=== PATIENT | female | born 1975 | race Two or more races ===

== ENCOUNTER → 2016-08-31 | Outpatient (CLI) | payer OTHER ==
--- NOTE | 2016-08-31 17:51 | US ---
Left Breast Ultrasound August 31, 2016 Indication: Pain upper-outer left breast. Technique: The upper-outer left breast was scanned with a high-resolution linear transducer by the jayden potts and . Correlation made with mammograms and targeted physical exam. Findings: Sonography reveals normal dense bands of fibroglandular tissue throughout the upper-outer l eft breast. No cyst, mass, or architectural distortion. Impression: Normal left breast ultrasound. No lesion suspicious for malignancy. BI-RADS 1: Negative Recommendation: Clinical follow up for breast pain. Routine annual screening in August 2017. The negative results and recommendations were discussed with the patient at time of study completion.
--- NOTE | 2016-08-31 19:28 | MA ---
Bilateral Digital Diagnostic Mammogram With iCAD dated August 31, 2016 Indication: Painful upper-outer left breast. Baseline exam. Technique: Standard CC and MLO views of the right and left breast. Mammograms are processed with iCAD analysis. Breast density: Type C. Comparison: None. Findings: No malignant type calcification, dominant mass, or architectural distortion in either breas t. Specifically, no abnormality in the upper-outer left breast to correlate with site of pain. Impression: Negative baseline mammograms. No explanation for pain. Recommendation: Proceed with left breast ultrasound as ordered. BIRADS 1. Negative. [facility] will send a result letter to the patient.
== END ==
LOC: CIMAGING 11:49
PROVIDERS: ATTEND Internal Medicine
DX: N64.4 Mastodynia (principal)
CPT/HCPCS: 76641-PO; G0204

== ENCOUNTER → 2017-07-09 | Outpatient (CLI) | payer OTHER | LOC: CIMAGING 12:01 | PROVIDERS: ATTEND Internal Medicine | DX: R53.83 Other fatigue (principal); R05 Cough | CPT/HCPCS: 71020-PO ==